=== PATIENT | female | born 1960 | race Caucasian/White ===

== ENCOUNTER → 2017-09-24 07:56 | Outpatient (CLI) | payer BC, MEDICAID, SELFPAY ==
--- NOTE | 2017-09-24 08:01 | US_ITS ---
ULTRASOUND GUIDED CORE BIOPSY REASON FOR EXAM: Female, 57 years old. Ill-defined hypoechoic nodule at the 12:00 position in the breast at 4 cm from nipple. PERTINENT HISTORY: Suspicious nodule. COMPARISON: Comparison is made with prior sonogram dated August 29, 2017. TECHNIQUE: (All elements of maximal sterile barrier technique followed, including US elements as applicable) Under direct sonographic guidance, the surgeon performed multiple core biopsies of the nodular density at the 12:00 position breast at 4 cm from the nipple. US/US Breast Biopsy 1st Lesion IMPRESSION: Ultrasound guided core biopsy of a mass in the LEFT breast at 12:00 position breast at 4 cm from the nipple without complication. Electronically Signed: Horacio Barfield MD at 12:45 EST Tel [phone], Service support ,
--- NOTE | 2017-09-24 08:45 | BRBX_PTH ---
PATIENT: MANUEL SEGOVIA LOC: U#:[id number] AGE/SX: 65/F ROOM: RE09/24/[address]: Dr. Yonatan Richter MD : 1960 BED: DIS: SPEC #: [id number] RECD: 09/24/17 09:00 STATUS: JODEE DON #: [id number] DUSTY: 09/24/17 08:[address]: Yonatan Richter DEPT: SURGICAL PATHOLOGY RECD BY: Jared Viera ENTERED: 09/24/17 13:18 SP TYPE: BREAST BX OTHR DR: Dr. Toi Gamboa MD Tissues: Left breast, NOS Procedures: Surgery Specimen Level IV HEADER OPERATION: Left breast needle biopsy ultrasound-guided PRE-OP DIAGNOSIS: Nodule 2.1 x 6 cm TISSUE SUBMITTED: Left breast 1 o?clock nodule MICROSCOPIC DIAGNOSIS Left breast at 1 o?clock, needle core biopsy: Densely collagenized stroma. Focal intraductal hyperplasia without atypia. No evidence of malignancy. AM:shanon 09/25/17 MICROSCOPIC DESCRIPTION Slides are reviewed. GROSS DESCRIPTION Received in fixative is one container labeled with the patient's name and designated left breast biopsy. The specimen consists of multiple elongated fragments of gordon-yellow fibroadipose tissue that in aggregate measure 2 x 0.5 x 0.1 cm. The entire specimen is submitted in one cassette. / SJ:shanon 09/24/17 TC:5 CPT: 97565
--- NOTE | 2017-09-24 13:34 | PCM.OPRPT ---
Problem List (1) Abnormal mammogram of left breast Status: Acute Report of Operation Date of Procedure: 09/24/17 Pre-Operative Diagnosis: r92.8 abnormal mammogram to left breast Post-Operative Diagnosis: Same Surgery/Procedure Performed:: Ultrasound-guided handheld mammotome breast biopsy left Type of Anesthesia:: Local Description of Procedure: Ultrasound of the left breast revealed the lesion in question. I prepped the breast with chlorhexidine. I injected 1% lidocaine plain. I injected local posterior to the lesion. A skin juan jose was made. Under ultrasound guidance I guided the hand-held mammotome biopsy posterior to the lesion. Numerous biopsies were obtained. Under ultrasound guidance I placed a titanium clip. Sterile dressings were applied. The patient tolerated the procedure well. - Admit VTE Documentation VTE Present on Admission: No VTE Mechan Device Prophylaxis: None VTE Pharm Prophylaxis ordered?: No Reason prophylaxis not ordered:: Treatment Not Indicated
== END ==
PROVIDERS: Family Provider Family Medicine; PCP Family Medicine; Visit Provider Surgery
DX: N60.92 Unspecified benign mammary dysplasia of left breast (principal)
CPT/HCPCS: 19083; 88305

== ENCOUNTER → 2018-04-24 15:37 | Outpatient (CLI) | payer BC, MEDICAID, SELFPAY | PROVIDERS: Family Provider Family Medicine; PCP Family Medicine; Visit Provider Family Medicine | DX: M25.562 Pain in left knee (principal); G89.29 Other chronic pain | CPT/HCPCS: 73721 ==

== ENCOUNTER → 2018-06-19 08:23 | Outpatient (CLI) | payer BC, MEDICAID, SELFPAY ==
[2018-06-19 10:53] LABS: Hemoglobin 12.9 g/dl (12.0-15.0); Mean Corp Hgb Conc 33.1 g/gl (32-36); Mean Corpuscular Hgb 31.5 pg (27.0-32.0); Mean Corpuscular Volume 95.4 fL (81-99); Mean Platelet Vol. 11.6 fl (6.2-12.0); Platelet Count 228 K/mm3 (150-450); RBC Distribution Width CV 13.1 % (11.6-14.6); RBC Distribution Width SD 45.6 fl (35.1-43.9); Red Blood Count 4.09 M/mm3 (4.2-5.4); White Blood Count 5.7 K/mm3 (4.4-11.0)
[2018-06-19 10:55] LABS: Scan Indicated on CBC? Y/N NO
[2018-06-19 10:59] LABS: Anion Gap 7 (5-15); BUN 14 mg/dL (7-18); BUN/Creat Ratio 14.2 RATIO (10-20); Chloride 101 mmol/L (98-107); Creatinine, Serum 0.98 mg/dL (0.55-1.02); EST Glomerular Filtration Rate 61 mL/min (>60); Est Glom Filt Rate - Afr Amer 74 mL/min (>60); Glucose 85 mg/dL (74-106); Potassium 3.1 mmol/L (3.5-5.1); Sodium Level 140 mmol/L (136-145)
[2018-06-19 11:08] LABS: Cholesterol 238 mg/dL (200); High Density Lipoprotein 75 mg/dL; Triglycerides 99 mg/dL; Very Low Density Lipoprotein 20 mg/dL (5-40); Vitamin D,25 Hydroxy 22.4 ng/mL (29.95-100.01)
== END ==
PROVIDERS: Family Medicine; Family Provider Family Medicine; PCP Family Medicine; Visit Provider Family Medicine
DX: I10 Essential (primary) hypertension (principal); Z79.1 Long term (current) use of non-steroidal anti-inflammatories (NSAID); R20.0 Anesthesia of skin
CPT/HCPCS: 36415; 80048; 80061; 82306; 85027

== ENCOUNTER → 2018-08-24 10:10 | Outpatient (CLI) | payer BC, SELFPAY ==
[2018-08-24 12:29] LABS: Anion Gap 9 (5-15); BUN 19 mg/dL (7-18); BUN/Creat Ratio 18.6 RATIO (10-20); Calcium,Total 8.9 mg/dL (8.5-10.1); Chloride 102 mmol/L (98-107); Creatinine, Serum 1.02 mg/dL (0.55-1.02); EST Glomerular Filtration Rate 59 mL/min (>60); Est Glom Filt Rate - Afr Amer 71 mL/min (>60); Glucose 99 mg/dL (74-106); Potassium 3.3 mmol/L (3.5-5.1); Sodium Level 142 mmol/L (136-145)
== END ==
PROVIDERS: Family Provider Family Medicine; PCP Family Medicine; Visit Provider Family Medicine
DX: I10 Essential (primary) hypertension (principal); R20.0 Anesthesia of skin; R20.2 Paresthesia of skin; E55.9 Vitamin D deficiency, unspecified; E87.6 Hypokalemia
CPT/HCPCS: 36415; 80048; 82306

== ENCOUNTER → 2019-05-18 16:45 | Outpatient (CLI) | payer BC, SELFPAY ==
--- NOTE | 2019-05-18 16:49 | BI_ITS ---
MAMMOGRAPHY - BILATERAL SCREENING REASON FOR EXAM: Female, 59 years old. Routine annual screening examination. PERTINENT HISTORY: Non-contributory. Status post left ultrasound breast biopsy. TECHNIQUE: Digital bilateral breast otilia (3D mammographic acquisition) in the CC and MLO projections. 2-D mediolateral oblique (MLO) and craniocaudad (CC) views of both breasts were obtained. CAD: Full Field Digital Mammography with Computer Added Detection was performed. COMPARISON: Comparison is made with prior study dated August 26, 2017 and December 23, 2014. FINDINGS: Breast Composition: The breasts are extremely dense, which lowers the sensitivity of mammography. There is a 3.2 cm x 3.2 cm well-defined nodule in the central slightly medial aspect of the left breast. Correlation with ultrasound is recommended. A tissue clip marker is seen in the deep central medial aspect of the left breast. No other significant abnormalities are identified. BI/SCREEN MAMM (CAD) W/OTILIA BILAT IMPRESSION: Nodular density in the left breast as described. Correlation with ultrasound is recommended. ASSESSMENT CATEGORY: BIRADS Category 0: Incomplete. Need additional imaging evaluation. A letter regarding these results will be sent to the patient by the facility within 30 days. Approximately 10% of breast cancers are not detected by mammography. A normal mammogram should not delay biopsy of a clinically suspicious abnormality. [id number] Electronically Signed: Horacio Barfield, at 9:14 EDT , Service support ,
[2019-05-22 10:20] LABS: HPV Reflexed? NOT INDICATED
== END ==
PROVIDERS: Family Provider Family Medicine; PCP Family Medicine; Referring Provider Family Medicine; Visit Provider Family Medicine
DX: Z01.419 Encounter for gynecological examination (general) (routine) without abnormal findings (principal); Z12.31 Encounter for screening mammogram for malignant neoplasm of breast
CPT/HCPCS: 77063; 77067; 88175; G0145

== ENCOUNTER → 2019-06-01 14:56 | Outpatient (CLI) | payer BC, SELFPAY ==
--- NOTE | 2019-06-01 14:59 | US_ITS ---
STUDY: ULTRASOUND BREAST - LEFT REASON FOR EXAM: Female, 59 years old. Abnormal screening mammogram. TECHNIQUE: Axial and longitudinal images of the LEFT breast were performed with a high resolution ultrasound transducer. COMPARISON: Comparison is made with prior mammogram dated May 18, 2019 and prior ultrasound of the left breast dated August 29, 2017. FINDINGS: LEFT Breast: The mammographic abnormality corresponds to a 2.1 cm x 2.9 cm x 2 cm irregular spiculated nodule with posterior acoustical shadowing at the 12:00 position of the breast at 4 cm from the nipple. A biopsy is recommended. US/Breast Limited Unilateral IMPRESSION: The mammographic abnormality corresponds to a 2.1 cm x 2.9 cm x 2 cm irregular hypoechoic nodule with posterior acoustical shadowing at the 12:00 position of the breast at 4 cm from the nipple. A biopsy is recommended. ASSESSMENT CATEGORY: BIRADS Category 4: Suspicious - Biopsy Should Be Considered. A letter regarding these results will be sent to the patient by the facility within 30 days. Electronically Signed: Horacio Barfield, at 14:16 EDT , Service support ,
== END ==
PROVIDERS: Family Provider Family Medicine; PCP Family Medicine; Referring Provider Family Medicine; Visit Provider Family Medicine
DX: N63.20 Unspecified lump in the left breast, unspecified quadrant (principal)
CPT/HCPCS: 76642

== ENCOUNTER → 2019-06-23 09:36 | Outpatient (CLI) | payer BC, SELFPAY ==
[2019-06-14 15:47] VITALS: BMI 23.9
--- NOTE | 2019-06-23 09:38 | US_ITS ---
STUDY: ULTRASOUND BREAST - LEFT REASON FOR EXAM: Female, 59 years old. Patient is scheduled for ultrasound-guided breast biopsy. TECHNIQUE: Axial and longitudinal images of the LEFT breast were performed with a high resolution ultrasound transducer. COMPARISON: Comparison is made with prior ultrasound of the left breast dated June 01, 2019. FINDINGS: LEFT Breast: The abnormality is seen at the 12:00 position of the breast at 4 cm from the nipple. The surgeon was performed the biopsy. US/Breast Limited Unilateral IMPRESSION: Scheduled biopsy was not performed. ASSESSMENT CATEGORY: BIRADS Category 0: Incomplete. Need additional imaging evaluation. A letter regarding these results will be sent to the patient by the facility within 30 days. Electronically Signed: Horacio Barfield, at 11:09 EDT , Service support ,
--- NOTE | 2019-06-23 10:31 | NURSING ---
local given by biopsy not done, area cleaned off and dressing opsite applied by myself, reviewed dc teaching and Doctors office will be calling patient later today. Jesika
--- NOTE | 2019-06-23 10:42 | HP.PCM_ITS ---
History and Physical Date of Admission: 06/23/19 [facility] [address] [place], [place] [id number] OFFICE VISIT Date of Service: 06/14/19 MR#: [id number] Acct: [id number] Name: MANUEL SEGOVIA Rep #: [id number] : 1960 Provider: Yonatan ramirez MD Age/Sex: 59/F Location: [facility] Status: Signed Intake Vital Signs 06/14/19 Body Mass Index (BMI) 23.9 06/14/19 Height 5 ft 2.5 in 06/14/19 Weight: 148 lb 06/14/19 Body Mass Index (BMI) 26.6 06/14/19 Blood Pressure 139/78 H 06/14/19 Blood Pressure Location Rt brachial 06/14/19 Respiratory Rate 18 06/14/19 Pulse Rate 67 06/14/19 Pulse Source Monitor 06/14/19 Temperature 98.4 F 06/14/19 Pulse Ox 99 06/14/19 Oxygen Delivery Method room air Intake Visit Reasons: Birads 4 Lt Breast [facility] US 06/01 Chief Complaint: left breast biopsy Packing Clerk Required: No Is patient in pain?: No Allergies azithromycin Allergy (Unknown, Verified 06/14/19 15:47) Unknown Sulfa (Sulfonamide Antibiotics) Allergy (Verified 06/14/19 15:47) Rash Medications chlorthalidone 25 mg tablet 25 mg PO QDAY 09/09/17 [History Confirmed 06/14/19] diphenhydramine 25 mg capsule 25 mg PO QHS 09/09/17 [History Confirmed 06/14/19] [facility] Medical History Abnormal mammogram of left breast (Acute) Hypertension (Chronic) Arthritis (Acute) Fatigue (Acute) Surgical History Hx of LASIK (Acute) Hx of left breast biopsy (Acute) History of in vitro fertilization (Acute) History of breast biopsy (Acute) Family History Father Heart disease Hypertension Mother Hypertension Osteoporosis Uterine cancer Social History (Updated 06/17/19 @ 11:32 by Yonatan Richter MD) Smoking Status: Never smoker second hand exposure: No alcohol intake: current alcohol intake frequency: 0-2 drinks per day Alcohol type: wine substance use type: does not use caffeine: Yes what type of physical activity do you participate in: none frequency: does not exercise seatbelt use: always HPI HPI HPI: MANUEL SEGOVIA, is a 59 F who presents to the office today for HPI HPI Surgical H&P: Yes HPI: MANUEL SEGOVIA is a 59 F who presents to the office today for Evaluation of an abnormal mammogram and ultrasound. Patient had her mammogram and ultrasounds completed [facility] on 06/01/2019. This showed a 2.1 x 2.9 x 2 cm irregular hypoechoic nodule with posterior shadowing at the 12 o'clock position and a biopsy was recommended. They gave her a BI-RADS Category 4. ROS General General: Yes weight change; no appetite, fatigue, colon cancer, breast cancer or weakness HEENT HEENT: No difficulty swallowing, eye injury, eye surgery, swollen glands or hoarseness Endo Endocrine: No thyroid disease, diabetes mellitus, thyroid cancer, Hair loss, heat intolerance or cold intolerance Skin Skin: No rash or changing moles Breast Breast: Yes abnormal mammogram and abnormal US; no left breast lump, right breast lump, nipple discharge, breast pain or breast enlargement Musc Musculoskeletal: Yes arthritis; no back problems, rheumatoid arthritis, gout or joint pain Cardio Cardiovascular: Yes high blood pressure; no murmur, pacemaker, heart disease, atrial fibrillation, heart attack, heart stent, palpitations, shortness of breat with exertion or chest pain Psych Psychiatric: No depression, anxiety or hearing voices Resp Respiratory: No shortness of breath, No sleep apnea, No cough, No COPD, No asthma, No emphysema, No wheezing Gastro Gastrointestinal: No abdominal pain, No nausea or vomiting, No diarrhea, No constipation, No blood in stool, No acid reflux, No hemorrhoids, No ulcers, No gallbladder problem, No black,tarry stools Samuel Hematologic: No blood thinners, No blood disorders, No bleeding, No anemia, No blood clots Neuro Neurologic: No system reviewed and no additional complaints, except as docu, No as per HPI, No abnormal walking, No abnormal hearing, No abnormal movements, No abnormal speech, No behavioral changes, No burning sensations, No confusion, No seizure-like activity, No unsteadiness, No dizziness, No localized weakness, No frequent falls, No headache(s), No lack of coordination, No loss of vision, No memory loss, No numbness, No other visual disturbances, No radiating pain, No restless legs, No sensory deficit, No fainting, No tingling, No tremor(s), No weakness, No other Exam HENMT Head: normal to inspection, normocephalic, atraumatic Mouth: oropharynx normal, moist mucous membranes Eyes General: appearance normal, both eyes and all related structures Sclera: sclerae normal Neck Neck: trachea midline, no lymphadenopathy noted Neck mass: No Thyroid: thyroid normal Lymphatic: no lymphadenopathy noted Chest Breast inspection: normal inspection of the breasts Breast Palpation: No nipple discharge Resp Other: Respiratory Exam: Deferred Cardio Heart Sounds: no murmurs Other: Cardiac Exam: Deferred GI Other: GI Exam: Deferred Other: Rectal Exam: Deferred Extrem Other: Extremity Exam: Deferred Assessment & Plan Problems 1. Abnormal mammogram of left breast R92.8 Plan I have discussed above with the patient. I have recommended ultrasound guided needle core breast biopsy with vacuum assistance. I have described the procedure to the patient. I have discussed with the patient that sometimes the ultrasound lesion may be artifact and is user dependent and therefore prior to undergoing the procedure, the patient will have a definitive US to ensure that the lesion is truly present and is not artifact. A marker clip will be placed to identify the location. Patient has been counseled to the risks/benefits of the procedure. I have explained the risks of the surgery, including but not limited to: infection, bleeding, injury to any blood vessels/nerves, scar tissue, missing the lesion, further surgery, etc. - the patient understands and agrees to proceed. I have answered all of the patient's questions to her satisfaction and she has no further questions. Coding Level of Care Code Off vis,est,level 3 Diagnoses Abnormal mammogram of left breast R92.8 06/17/19 1132 <Electronically signed by Yonatan barragan MD> Date _ Yonatan Villeda Signature: Date (if applicable) CC: Bret Flores MD ~ I have re-examined the patient. There are no clinical changes since date of exam.
--- NOTE | 2019-06-23 10:43 | OP.PCM_ITS ---
Problem List (1) Abnormal mammogram of left breast Status: Acute Report of Operation Date of Procedure: 06/23/19 Pre-Operative Diagnosis: Abnormal mammogram/ultrasound to the left breast Post-Operative Diagnosis: Same Surgery/Procedure Performed:: Attempted ultrasound-guided needle core biopsy of abnormal mammogram the left breast Type of Anesthesia:: Local Description of Procedure: Patient was brought into the ultrasound suite. We ultrasound the left breast at the 12 o'clock position approximately 4 cm from the nipple I thought that I saw the area that was seen on the ultrasound but it was very difficult to see I prepped the skin with chlorhexidine. I injected 1% lidocaine plain. I injected local down to the area which was just on the musculature of the chest. This was painful for the patient unfortunately it distorted the area to the point where I did not feel comfortable attempting to biopsy an area which I just did not see clearly since injecting the local. I think this area is suspicious and I do not think that I can do the biopsy and therefore I am going to send her for a second opinion from a breast surgeon at the [facility] in [place]. - Admit VTE Documentation VTE Present on Admission: No VTE Mechan Device Prophylaxis: None VTE Pharm Prophylaxis ordered?: No Reason prophylaxis not ordered:: Treatment Not Indicated
== END ==
PROVIDERS: Family Provider Family Medicine; PCP Family Medicine; Referring Provider Surgery; Visit Provider Surgery
DX: R92.8 Other abnormal and inconclusive findings on diagnostic imaging of breast (principal)
CPT/HCPCS: 76642

== ENCOUNTER → 2020-05-30 14:09 | Outpatient (CLI) | payer BC, SELFPAY ==
[2019-06-14 15:47] VITALS: BMI 23.9
--- NOTE | 2020-05-30 14:12 | BI_ITS ---
MAMMOGRAPHY - BILATERAL SCREENING REASON FOR EXAM: Female, 60 years old. Routine annual screening examination. PERTINENT HISTORY: Non-contributory. Occasional left breast swelling. Prior left breast biopsies. TECHNIQUE: Digital bilateral breast otilia (3D mammographic acquisition) in the CC and MLO projections. 2-D mediolateral oblique (MLO) and craniocaudad (CC) views of both breasts were obtained. CAD: Full Field Digital Mammography with Computer Added Detection was performed. COMPARISON: Comparison is made with prior study of 05/18/2019 and 08/26/2017. FINDINGS: Breast Composition: The breasts are extremely dense, which lowers the sensitivity of mammography. There are no dominant masses or suspicious calcifications. A tissue clip marker is seen in the central knee the left breast. A second tissue marker is seen in the upper central portion left breast. Stable benign-appearing bilateral axillary lymph nodes. No other significant abnormalities are identified. There has been no significant change since the prior study. BI/SCREEN MAMM (CAD) W/OTILIA BILAT IMPRESSION: Stable bilateral screening mammogram. Yearly follow-up mammogram recommended. (A) ASSESSMENT CATEGORY: BIRADS Category 2: Benign. A letter regarding these results will be sent to the patient by the facility within 30 days. Approximately 10% of breast cancers are not detected by mammography. A normal mammogram should not delay biopsy of a clinically suspicious abnormality. [id number] Electronically Signed: Horacio Barfield, at 15:16 EDT , Service support ,
== END ==
PROVIDERS: PCP Family Medicine; Referring Provider Family Medicine; Visit Provider Family Medicine
DX: Z12.31 Encounter for screening mammogram for malignant neoplasm of breast (principal)
CPT/HCPCS: 77063; 77067

== ENCOUNTER → 2020-06-09 15:25 | Outpatient (CLI) | payer BC, SELFPAY ==
[2019-06-14 15:47] VITALS: BMI 23.9
[2020-06-09 18:24] LABS: Anion Gap 6 (5-15); BUN 15 mg/dL (7-18); BUN/Creat Ratio 15.7 RATIO (10-20); Chloride 98 mmol/L (98-107); Cholesterol 223 mg/dL (200); Creatinine, Serum 0.96 mg/dL (0.55-1.02); EST Glomerular Filtration Rate 63 mL/min (>60); Est Glom Filt Rate - Afr Amer 76 mL/min (>60); Glucose 93 mg/dL (74-106); High Density Lipoprotein 87 mg/dL; Sodium Level 134 mmol/L (136-145); Triglycerides 72 mg/dL; Very Low Density Lipoprotein 14 mg/dL (5-40)
== END ==
PROVIDERS: PCP Family Medicine; Referring Provider Family Medicine; Visit Provider Family Medicine
DX: Z00.00 Encounter for general adult medical examination without abnormal findings (principal)
CPT/HCPCS: 36415; 80048; 80061; 82306

== ENCOUNTER → 2020-07-05 08:55 | Outpatient (CLI) | payer BC, SELFPAY ==
[2019-06-14 15:47] VITALS: BMI 23.9
[2020-07-05 10:40] LABS: Anion Gap 8 (5-15); BUN 17 mg/dL (7-18); Chloride 99 mmol/L (98-107); EST Glomerular Filtration Rate 60 mL/min (>60); Est Glom Filt Rate - Afr Amer 72 mL/min (>60); Glucose 76 mg/dL (74-106); Potassium 3.1 mmol/L (3.5-5.1); Sodium Level 137 mmol/L (136-145)
== END ==
PROVIDERS: PCP Family Medicine; Referring Provider Family Medicine; Visit Provider Family Medicine
DX: E87.6 Hypokalemia (principal)
CPT/HCPCS: 36415; 80048

== ENCOUNTER → 2020-11-08 12:05 | Outpatient (CLI) | payer BC, SELFPAY ==
[2019-06-14 15:47] VITALS: BMI 23.9
--- NOTE | 2020-11-08 12:08 | RAD_ITS ---
STUDY: X-RAY - UNILATERAL RIBS ( RIGHT ) REASON FOR EXAM: Female, 60 years old. pt fell, right rib pain under right armpit and bruising TECHNIQUE: 4 view(s) of the ribs. COMPARISON: None. FINDINGS: No acute fracture, dislocation or osseous destruction. No significant joint space narrowing. No significant productive changes. No significant soft tissue swelling. RAD/Ribs Unil 2V No CXR IMPRESSION: Right ribs intact Electronically Signed: Azael Dias DO at 8:05 EST Tel , Service support ,
== END ==
PROVIDERS: PCP Family Medicine; Referring Provider Family Medicine; Visit Provider Family Medicine
DX: S29.9XXA Unspecified injury of thorax, initial encounter (principal); W19.XXXA Unspecified fall, initial encounter
CPT/HCPCS: 71100

== ENCOUNTER → 2021-02-07 12:45 | Outpatient (CLI) | payer BC, SELFPAY ==
[2019-06-14 15:47] VITALS: BMI 23.9
--- NOTE | 2021-02-07 12:49 | RAD_ITS ---
STUDY: X-RAY - RIGHT FOOT CLINICAL: Female, 60 years old. FOOT PAIN TECHNIQUE: 3 view(s) of the foot. COMPARISON: None. FINDINGS: Normal talus, calcaneus, and tarsal bones. Normal visualized subtalar, talonavicular, calcaneocuboid, tarsal and tarsometatarsal articulations. Normal metatarsi. There is degenerative arthrosis of the metatarsophalangeal joint of the hallux . Normal tibial and fibular sesamoid bones. Normal interphalangeal joint of the great toe. Normal phalanges of the great toe. Normal second through fifth metatarsophalangeal joints. Normal interphalangeal joints and phalanges of the lesser toes. Soft tissue swelling. RAD/Foot min 3 Views IMPRESSION: Degenerative changes at the first metatarsal phalangeal joint Soft tissue swelling. Electronically Signed: Horacio Barfield MD at 13:23 EDT , Service support ,
== END ==
PROVIDERS: PCP Family Medicine; Referring Provider Chiropractor; Visit Provider Chiropractor
DX: M79.671 Pain in right foot (principal)
CPT/HCPCS: 73630

== ENCOUNTER → 2021-06-26 16:16 | Outpatient (CLI) | payer BC, SELFPAY ==
--- NOTE | 2021-06-26 16:19 | BI_ITS ---
MAMMOGRAPHY - BILATERAL SCREENING REASON FOR EXAM: Female, 61 years old. Routine annual screening examination. PERTINENT HISTORY: Non-contributory. TECHNIQUE: Digital bilateral breast otilia (3D mammographic acquisition) in the CC and MLO projections. 2-D mediolateral oblique (MLO) and craniocaudad (CC) views of both breasts were obtained. CAD: Full Field Digital Mammography with Computer Added Detection was performed. COMPARISON: Comparison is made with prior examination of 05/30/2020 and 05/18/2019. FINDINGS: Breast Composition: The breasts are extremely dense, which lowers the sensitivity of mammography. There are no dominant masses or suspicious calcifications. Once again, a tissue clip markers are seen in the upper central and medial aspects of the left breast. Stable benign-appearing bilateral axillary lymph nodes. No other significant abnormalities are identified. There has been no significant change since the prior study. BI/SCRN MAMM (CAD)W/OTIILA BILAT IMPRESSION: Stable bilateral screening mammogram. Yearly follow-up mammogram recommended. (A) ASSESSMENT CATEGORY: BIRADS Category 2: Benign. A letter regarding these results will be sent to the patient by the facility within 30 days. Approximately 10% of breast cancers are not detected by mammography. A normal mammogram should not delay biopsy of a clinically suspicious abnormality. [id number] Electronically Signed: Horacio Barfield MD at 11:15 EDT , Service support ,
== END ==
PROVIDERS: PCP Family Medicine; Referring Provider Family Medicine; Visit Provider Family Medicine
DX: Z12.31 Encounter for screening mammogram for malignant neoplasm of breast (principal)
CPT/HCPCS: 77063; 77067

== ENCOUNTER 2021-11-16 08:20 | Outpatient (CLI) | payer BC, SELFPAY ==
[2021-11-16 09:57] LABS: Absolute Lymphocyte Count 1.31 X10^3/uL (0.83-4.51); Absolute Neutrophil Count 3.3 X10^3/uL (2.0-7.7); Basophil# 0.08 X10^3/uL; Basophil% 1.5 % (0-1); Eosinophil# 0.12 X10^3/uL; Eosinophils% 2.3 % (0-5); Hematocrit 37.3 % (37-47); Lymphocyte # 1.31 X10^3/ul (0.83-4.51); Lymphocyte % 25.2 % (19-41); Mean Corp Hgb Conc 32.2 g/dL (32-36); Mean Corpuscular Hgb 30.7 pg (27.0-32.0); Mean Corpuscular Volume 95.4 fL (81-99); Mean Platelet Vol. 10.9 fl (6.2-12.0); Monocyte# 0.37 X10^3/uL; Monocyte% 7.1 % (0-10); NRBC Flagged by Analyzer 0 % (0-5); Neutrophil # 3.29 X10^3/uL (2.7-7.7); Neutrophil % 63.5 % (47-70); Platelet Count 228 K/mm3 (150-450); RBC Distribution Width CV 13.2 % (11.6-14.6); RBC Distribution Width SD 46.5 fl (35.1-43.9); Red Blood Count 3.91 M/mm3 (4.2-5.4); White Blood Count 5.2 K/mm3 (4.4-11.0)
[2021-11-16 10:25] LABS: ALB/GLOB Ratio 0.9 RATIO (0.9-2.4); AST(SGOT) 17 U/L (15-37); Alanine Aminotransfer ALT/SGPT 21 U/L (13-56); Albumin, Serum 3.7 g/dL (3.2-5.0); Alkaline Phosphatase 87 U/L (45-117); Anion Gap 6 (5-15); BUN 15 mg/dL (7-18); BUN/Creat Ratio 15.3 RATIO (10-20); Calcium,Total 8.8 mg/dL (8.5-10.1); Chloride 102 mmol/L (98-107); Cholesterol 218 mg/dL (200); Creatinine, Serum 0.98 mg/dL (0.55-1.02); EST Glomerular Filtration Rate 61 mL/min (>60); Est Glom Filt Rate - Afr Amer 74 mL/min (>60); Glucose 85 mg/dL (74-106); High Density Lipoprotein 78 mg/dL; Potassium 3.2 mmol/L (3.5-5.1); Protein, Total 7.7 g/dL (6.4-8.2); Sodium Level 137 mmol/L (136-145); Triglycerides 73 mg/dL; Very Low Density Lipoprotein 15 mg/dL (5-40)
== END 2021-11-16 23:59 | disposition home or self-care (01) ==
LOC: MFPLAB 08:25
PROVIDERS: PCP Family Medicine; Referring Provider Family Medicine; Visit Provider Registered Nurse
DX: I10 Essential (primary) hypertension (principal)
CPT/HCPCS: 36415; 80053; 80061; 85025

== ENCOUNTER → 2022-08-13 | Outpatient (CLI) | payer BC, SELFPAY ==
--- NOTE | 2022-08-13 15:35 | BI_ITS ---
MAMMOGRAPHY - BILATERAL SCREENING REASON FOR EXAM: Female, 62 years old. Routine annual screening examination. PERTINENT HISTORY: Non-contributory. History of prior left breast needle biopsy. TECHNIQUE: Digital bilateral breast otilia (3D mammographic acquisition) in the CC and MLO projections. 2-D mediolateral oblique (MLO) and craniocaudad (CC) views of both breasts were obtained. CAD: Full Field Digital Mammography with Computer Added Detection was performed. COMPARISON: Comparison is made with prior study dated 06/26/2021 and 05/30/2020. FINDINGS: Breast Composition: The breasts are extremely dense, which lowers the sensitivity of mammography. There are no dominant masses or suspicious calcifications. 2 tissue markers are seen in the central slightly medial aspect of the left breast. Stable small benign-appearing bilateral axillary lymph nodes. No other significant abnormalities are identified. There has been no significant change since the prior study. BI/SCRN MAMM (CAD)W/OTILIA BILAT IMPRESSION: Stable bilateral screening mammogram. Yearly follow-up mammogram recommended. (A) ASSESSMENT CATEGORY: BIRADS Category 2: Benign. A letter regarding these results will be sent to the patient by the facility within 30 days. Approximately 10% of breast cancers are not detected by mammography. A normal mammogram should not delay biopsy of a clinically suspicious abnormality. [id number] Electronically Signed: Horacio Barfield MD at 8:53 EST ,
== END | disposition home or self-care (01) ==
LOC: OPBI 15:34
PROVIDERS: PCP Family Medicine; Visit Provider Family Medicine
DX: Z12.31 Encounter for screening mammogram for malignant neoplasm of breast (principal)
CPT/HCPCS: 77063; 77067

== ENCOUNTER → 2022-10-02 | Outpatient (CLI) | payer BC, SELFPAY ==
[2022-10-02 12:40] LABS: ALB/GLOB Ratio 0.9 RATIO (0.9-2.4); AST(SGOT) 15 U/L (15-37); Alanine Aminotransfer ALT/SGPT 21 U/L (13-56); Albumin, Serum 3.5 g/dL (3.2-5.0); Alkaline Phosphatase 77 U/L (45-117); Anion Gap 8 (5-15); BUN 17 mg/dL (7-18); Calcium,Total 8.9 mg/dL (8.5-10.1); Chloride 102 mmol/L (98-107); Cholesterol 215 mg/dL (200); Creatinine, Serum 0.94 mg/dL (0.55-1.02); EST Glomerular Filtration Rate 64 mL/min (>60); Est Glom Filt Rate - Afr Amer 77 mL/min (>60); Globulin 3.9 g/dL (2.2-4.2); Glucose 87 mg/dL (74-106); High Density Lipoprotein 80 mg/dL; Potassium 3.3 mmol/L (3.5-5.1); Protein, Total 7.4 g/dL (6.4-8.2); Sodium Level 139 mmol/L (136-145); Triglycerides 61 mg/dL; Very Low Density Lipoprotein 12 mg/dL (5-40)
== END | disposition home or self-care (01) ==
PROVIDERS: PCP Family Medicine; Referring Provider Family Medicine; Visit Provider Nurse Practitioner Family
DX: Z13.1 Encounter for screening for diabetes mellitus (principal); Z13.220 Encounter for screening for lipoid disorders
CPT/HCPCS: 36415; 80053; 80061

== ENCOUNTER → 2023-03-17 | Outpatient (CLI) | payer BC, SELFPAY ==
[2023-03-19 21:07] LABS: HPV APTIMA, High Risk Negative (Negative)
[2023-03-19 21:54] LABS: HPV Reflexed? YES, CHARGE PATIENT
== END | disposition home or self-care (01) ==
LOC: LABSPEC 12:49
PROVIDERS: PCP Family Medicine; Referring Provider Nurse Practitioner Family; Visit Provider Nurse Practitioner Family
DX: Z12.4 Encounter for screening for malignant neoplasm of cervix (principal)
CPT/HCPCS: 87624; 88175; G0145

== ENCOUNTER → 2023-04-07 | Outpatient (CLI) | payer BC, SELFPAY ==
[2023-04-07 19:37] LABS: Anion Gap 5 (5-15); BUN 14 mg/dL (7-18); BUN/Creat Ratio 14.9 RATIO (10-20); Calcium,Total 9.2 mg/dL (8.5-10.1); Chloride 99 mmol/L (98-107); Creatinine, Serum 0.94 mg/dL (0.55-1.02); EST Glomerular Filtration Rate 64 mL/min (>60); Est Glom Filt Rate - Afr Amer 77 mL/min (>60); Glucose 94 mg/dL (74-106); Potassium 2.7 mmol/L (3.5-5.1); Sodium Level 135 mmol/L (136-145)
== END | disposition home or self-care (01) ==
LOC: MFPLAB 16:30
PROVIDERS: Nurse Practitioner Family; PCP Family Medicine; Visit Provider Family Medicine
DX: I10 Essential (primary) hypertension (principal)
CPT/HCPCS: 36415; 80048

== ENCOUNTER → 2023-04-11 | Outpatient (CLI) | payer BC, SELFPAY ==
[2023-04-11 18:07] LABS: Potassium 3.8 mmol/L (3.5-5.1)
== END | disposition home or self-care (01) ==
LOC: MFPLAB 16:42
PROVIDERS: PCP Family Medicine; Visit Provider Nurse Practitioner Family
DX: E87.6 Hypokalemia (principal)
CPT/HCPCS: 36415; 84132

== ENCOUNTER → 2023-08-19 | Outpatient (CLI) | payer BC, SELFPAY ==
--- NOTE | 2023-08-19 16:11 | BI_ITS ---
MAMMOGRAPHY - BILATERAL SCREENING REASON FOR EXAM: Female, 63 years old. Routine annual screening examination. PERTINENT HISTORY: Non-contributory. History of prior left ultrasound-guided breast biopsy. TECHNIQUE: Digital bilateral breast otilia (3D mammographic acquisition) in the CC and MLO projections. 2-D mediolateral oblique (MLO) and craniocaudad (CC) views of both breasts were obtained. CAD: Full Field Digital Mammography with Computer Added Detection was performed. COMPARISON: Comparison is made with prior study dated August 13, 2022 and June 26, 2021. FINDINGS: Breast Composition: The breasts are extremely dense, which lowers the sensitivity of mammography. There are no dominant masses or suspicious calcifications. Once again, 2 tissue clip marker seen in the upper slightly medial aspect of the left breast. Stable calcifications in the right axillary region. No other significant abnormalities are identified. There has been no significant change since the prior study. BI/SCRN MAMM (CAD)W/OTILIA BILAT IMPRESSION: Stable bilateral screening mammogram. Yearly follow-up mammogram recommended. (A) ASSESSMENT CATEGORY: BIRADS Category 2: Benign. A letter regarding these results will be sent to the patient by the facility within 30 days. Approximately 10% of breast cancers are not detected by mammography. A normal mammogram should not delay biopsy of a clinically suspicious abnormality. [id number] Electronically Signed: Horacio Barfield MD at 9:05 EST ,
== END | disposition home or self-care (01) ==
LOC: OPBI 16:10
PROVIDERS: PCP Family Medicine; Referring Provider Nurse Practitioner Family; Visit Provider Nurse Practitioner Family
DX: Z12.31 Encounter for screening mammogram for malignant neoplasm of breast (principal)
CPT/HCPCS: 77063; 77067

== ENCOUNTER → 2023-10-22 | Outpatient (CLI) | payer BC, SELFPAY ==
[2023-10-22 18:07] LABS: AST(SGOT) 18 U/L (15-37); Alanine Aminotransfer ALT/SGPT 20 U/L (13-56); Albumin, Serum 3.9 g/dL (3.2-5.0); Alkaline Phosphatase 77 U/L (45-117); Amylase 50 U/L (25-115); Anion Gap 5 (5-15); BUN 15 mg/dL (7-18); BUN/Creat Ratio 17.6 RATIO (10-20); Calcium,Total 9.2 mg/dL (8.5-10.1); Chloride 100 mmol/L (98-107); Creatinine, Serum 0.85 mg/dL (0.55-1.02); EST Glomerular Filtration Rate 71 mL/min (>60); Est Glom Filt Rate - Afr Amer 86 mL/min (>60); Globulin 3.9 g/dL (2.2-4.2); Glucose 90 mg/dL (74-106); Lipase 21 U/L (13-75); Potassium 2.8 mmol/L (3.5-5.1); Protein, Total 7.8 g/dL (6.4-8.2); Sodium Level 137 mmol/L (136-145)
--- OUTSIDE RECORDS SUMMARY | 2023-10-22 18:45 | XMS RPT_ITS | CCD ---
Author Name Unknown Address [address] [place] [address] Organization [facility] Care Team Providers Care [employer] Teacher Name Role Phone EVE HOWELL Unavailable Unavailable NICHOLAS MAGAÑA Unavailable Unavailable Allergies Allergy Classification Reported Allergen(s) Allergy Type Date of Onset Reaction(s) Facility (1 source) azithromycin; Translations: [AZITHROMYCIN] Drug Allergy 5 [facility] Repository (1 source) Sulfonamides (Antibiotic); Translations: [SULFA (SULFONAMIDE ANTIBIOTICS)] Propensity to adverse reactions to drug (disorder) 4 [facility] Repository Problems Problem Classification Problem Date Documented Da te Episodic/Chronic Crushing injury or internal injury (1 source) Traumatic pneumothorax, subsequent encounter; Translations: [Traumatic pneumothorax, subsequent encounter] Onset: 04-14-2017 Episodic Other fractures (2 sources) Multiple fractures of ribs, bilateral, subsequent encounter for fracture with routine healing; Translations: [Unspecified fracture of sternum, subsequent encounter for fracture with routine healing] Onset: 04-14-2017 Episodic Results Test Name Value Interpretation Reference Range Facil ity Encounters Encounter Date Encounter Type Care Provider Facility Start: 04-14-2017 End: 04-14-2017 Ambulatory EVE HOWELL [facility] Summary Purpose Family History No Family History Records FoundNo Family History Records FoundNo Family History Records FoundNo Family History Records FoundNo Family History Records Found Advance Directives No Advanced Directives Records FoundNo Advanced Directives Records FoundNo Advanced Directives Records FoundNo Advanced Directives Records FoundNo Advanced Directives Records Found Additional Source Comments INFORMATION SOURCE (unrecogn ized section and content) DATE CREATED AUTHOR AUTHOR'S ORGANIZ ATION 07/08/2019 [facility] DATE CREATED AUTHOR AUTHOR'S ORGANIZ ATION 07/21/2019 [facility] DATE CREATED AUTHOR AUTHOR'S CINTIA ATION 08/24/2019 [facility] FOR RECORDS PERTAINING TO PATIENTS WHO ARE OR HAVE BEEN ENROLLED IN A CHEMICAL DEPENDENCY/SUBSTANCEABUSE PROGRAM, SOME INFORMATION MAY BE OMITTED. This clinical summary was aggregated from multiple sources. Caution should be exercised in using it in the provision of clinical care. This summary normalizes information from multiple sources, and as a consequence, information in this document may materially change the coding, format and clinical context of patient data. In addition, data may be omitted in some cases. CLINICAL DECISIONS SHOULD BE BASED ON THE PRIMARY CLINICAL RECORDS. [facility] [employer]. provides no warranty or guarantee of the accuracy or completeness of information in this document.
== END | disposition home or self-care (01) ==
LOC: MFPLAB 14:31
PROVIDERS: Nurse Practitioner Family; PCP Family Medicine; Visit Provider Family Medicine
DX: R10.9 Unspecified abdominal pain (principal); E87.6 Hypokalemia
CPT/HCPCS: 36415; 80053; 82150; 83690

== ENCOUNTER → 2023-11-13 | Outpatient (CLI) | payer BC, SELFPAY ==
[2023-11-13 13:17] LABS: Anion Gap 8 (5-15); BUN 15 mg/dL (7-18); BUN/Creat Ratio 13.8 RATIO (10-20); Calcium,Total 9.1 mg/dL (8.5-10.1); Chloride 101 mmol/L (98-107); Creatinine, Serum 1.09 mg/dL (0.55-1.02); EST Glomerular Filtration Rate 54 mL/min (>60); Est Glom Filt Rate - Afr Amer 65 mL/min (>60); Glucose 89 mg/dL (74-106); Potassium 3.1 mmol/L (3.5-5.1); Sodium Level 139 mmol/L (136-145)
--- OUTSIDE RECORDS SUMMARY | 2023-11-13 19:47 | XMS RPT_ITS | CCD ---
Author Name Unknown Address [address] [place] [address] Organization [facility] Care Team Providers Care [employer] Back Forger Name Role Phone EVE HOWELL Unavailable Unavailable NICHOLAS MAGAÑA Unavailable Unavailable Allergies Allergy Classification Reported Allergen(s) Allergy Type Date of Onset Reaction(s) Facility (1 source) azithromycin; Translations: [AZITHROMYCIN] Drug Allergy 5 [facility] Repository (1 source) Sulfonamides (Antibiotic); Translations: [SULFA (SULFONAMIDE ANTIBIOTICS)] Propensity to adverse reactions to drug (disorder) 4 [facility] Repository Problems Problem Classification Problem Date [...] Start: 04-14-2017 End: 04-14-2017 Ambulatory EVE HOWELL [facility] Summary Purpose Family History No Family [...] DATE CREATED AUTHOR AUTHOR'S ORGANIZ ATION 07/08/2019 [facility] DATE CREATED AUTHOR AUTHOR'S ORGANIZ ATION 07/21/2019 [facility] DATE CREATED AUTHOR AUTHOR'S CINTIA ATION 08/24/2019 [facility] FOR RECORDS PERTAINING TO PATIENTS WHO [...] BE BASED ON THE PRIMARY CLINICAL RECORDS. [facility] [employer]. provides no warranty or guarantee of the accuracy or completeness of information in this document.
== END | disposition home or self-care (01) ==
LOC: MFPLAB 11:10
PROVIDERS: Nurse Practitioner Family; PCP Family Medicine; Visit Provider Family Medicine
DX: E87.6 Hypokalemia (principal)
CPT/HCPCS: 36415; 80048

== ENCOUNTER → 2023-12-09 | Outpatient (CLI) | payer BC, SELFPAY ==
--- NOTE | 2023-12-09 16:05 | BD_ITS ---
STUDY: DUAL ENERGY X-RAY ABSORPTIOMETRY / DXA REASON FOR EXAM: Female, 63 years old. 627.8Menopausal postmenopausal BONE DENSITY REASON FOR EXAM TECHNIQUE: Bone Mineral Density (BMD) measurements of lumbar spine and bilateral hips were obtained. COMPARISON: Comparison is made with prior study dated August 10, 2015. FINDINGS: Lumbar Spine (L1-L4): g/cm2 (0.911) / T-score (-1.3) / Z-score (0.5) Findings are suggestive of osteopenia with a low fracture risk. Left Femur Total: g/cm2 (0.823) / T-score (-1.0) / Z-score (0.2) Left Femoral Neck: g/cm2 (0.699) / T-score (-1.3) / Z-score (0.1) Right Femur Total: g/cm2 (0.667) / T-score (-2.3) / Z-score (-1.0) Right Femoral Neck: g/cm2 (0.572) / T-score (-2.5) / Z-score (-1.0) The T-Scores on the most recent prior examination were: Lumbar Spine (L1-L4): There has been worsening of bone density since the previous examination. Left Femur Total: which represents an improvement of 6%. Right Femur Total: which represents a worsening of 0.8%. BD/Dexa Bone Density Study IMPRESSION: The patient is considered osteopenic as outlined below according to [employer] [place] Organization (WHO) criteria with a high fracture risk. There has been worsening of bone density since the previous examination. Reference Information: The T-score is the number of standard deviations above or below the standard which is normal for young adults at their peak bone mineral density. The World Health Organization (WHO) interprets the T-scores as follows: Above -1 Normal bone density Between -1 and -2.5 Osteopenia Equal to / or below -2.5 Osteoporosis As a practical clinical guideline, osteopenia may be graded as follows: Mild -1 through -1.5 Moderate -1.6 through -2.0 Severe -2.1 through -2.4 The Z-score is the number of standard deviations above or below age-matched controls. A Z-score of less than -1.5 would be considered abnormal. References: 1. NIH Osteoporosis and Related Bone Diseases www osteo.org 2. International Society for Clinical Densitometry www iscd.org 3. National Osteoporosis Foundation www nof.org Electronically Signed: Horacio Barfield MD at 11:15 EDT ,
== END | disposition home or self-care (01) ==
LOC: OPBD 16:01
PROVIDERS: PCP Family Medicine; Referring Provider Family Medicine; Visit Provider Family Medicine
DX: N95.9 Unspecified menopausal and perimenopausal disorder (principal)
CPT/HCPCS: 77080

== ENCOUNTER → 2023-12-31 | Outpatient (CLI) | payer BC, SELFPAY ==
[2023-12-31 18:00] LABS: Anion Gap 8 (5-15); BUN 16 mg/dL (7-18); BUN/Creat Ratio 16.9 RATIO (10-20); Calcium,Total 9.1 mg/dL (8.5-10.1); Chloride 100 mmol/L (98-107); Creatinine, Serum 0.95 mg/dL (0.55-1.02); EST Glomerular Filtration Rate 63 mL/min (>60); Est Glom Filt Rate - Afr Amer 76 mL/min (>60); Glucose 102 mg/dL (74-106); Potassium 2.8 mmol/L (3.5-5.1); Sodium Level 138 mmol/L (136-145)
== END | disposition home or self-care (01) ==
LOC: MFPLAB 14:07
PROVIDERS: PCP Family Medicine; Visit Provider Family Medicine
DX: E87.6 Hypokalemia (principal)
CPT/HCPCS: 36415; 80048

== ENCOUNTER → 2024-01-02 | Outpatient (CLI) | payer BC, SELFPAY ==
--- NOTE | 2024-01-02 17:00 | RAD_ITS ---
STUDY: X-RAY - LEFT HAND, ATTENTION FOURTH FINGER REASON FOR EXAM: Female, 63 years old. R/O FRACTURE TECHNIQUE: 3 view(s) of the finger were obtained. COMPARISON: None. FINDINGS: There is a mildly displaced intra-articular fracture involving the dorsal margin of the base of the middle phalanx. Normal metacarpal head. Normal metacarpophalangeal joint. Normal proximal phalanx. Normal distal phalanx. Normal proximal interphalangeal joint. Normal distal interphalangeal joint. RAD/Finger(s) Min 2 Views IMPRESSION: Mildly displaced intra-articular fracture involving the dorsal margin of the base of the fourth middle phalanx. Electronically Signed: Isaías Yeager MD at 17:18 EDT ,
== END | disposition home or self-care (01) ==
LOC: MTRAD 16:56
PROVIDERS: PCP Family Medicine; Referring Provider Chiropractor; Visit Provider Chiropractor
DX: S62.605A Fracture of unspecified phalanx of left ring finger, initial encounter for closed fracture (principal)
CPT/HCPCS: 73140

== ENCOUNTER → 2024-01-14 | Outpatient (CLI) | payer BC, SELFPAY ==
[2024-01-14 10:35] LABS: Anion Gap 4 (5-15); BUN 13 mg/dL (7-18); BUN/Creat Ratio 11.9 RATIO (10-20); Calcium,Total 9.3 mg/dL (8.5-10.1); Chloride 104 mmol/L (98-107); Creatinine, Serum 1.09 mg/dL (0.55-1.02); EST Glomerular Filtration Rate 54 mL/min (>60); Est Glom Filt Rate - Afr Amer 65 mL/min (>60); Glucose 70 mg/dL (74-106); Potassium 3.1 mmol/L (3.5-5.1); Sodium Level 138 mmol/L (136-145)
== END | disposition home or self-care (01) ==
LOC: MFPLAB 08:57
PROVIDERS: PCP Family Medicine; Visit Provider Family Medicine
DX: I10 Essential (primary) hypertension (principal)
CPT/HCPCS: 36415; 80048

== ENCOUNTER → 2024-02-04 | Outpatient (CLI) | payer BC, SELFPAY | END | disposition home or self-care (01) | LOC: MFPLAB 15:26 | PROVIDERS: PCP Family Medicine; Visit Provider Family Medicine | DX: Z00.00 Encounter for general adult medical examination without abnormal findings (principal) ==

== ENCOUNTER → 2024-02-20 | Outpatient (CLI) | payer BC, SELFPAY ==
[2024-02-20 10:45] LABS: Anion Gap 5 (5-15); BUN 13 mg/dL (7-18); BUN/Creat Ratio 13.9 RATIO (10-20); Calcium,Total 9.3 mg/dL (8.5-10.1); Chloride 99 mmol/L (98-107); Creatinine, Serum 0.94 mg/dL (0.55-1.02); EST Glomerular Filtration Rate 64 mL/min (>60); Est Glom Filt Rate - Afr Amer 77 mL/min (>60); Glucose 84 mg/dL (74-106); Potassium 2.9 mmol/L (3.5-5.1); Sodium Level 136 mmol/L (136-145)
== END | disposition home or self-care (01) ==
LOC: MFPLAB 09:07
PROVIDERS: PCP Family Medicine; Visit Provider Family Medicine
DX: E87.6 Hypokalemia (principal)
CPT/HCPCS: 36415; 80048

== ENCOUNTER → 2024-03-17 | Outpatient (CLI) | payer BC, SELFPAY ==
[2024-03-17 12:40] LABS: Anion Gap 7 (5-15); BUN 13 mg/dL (7-18); BUN/Creat Ratio 13.7 RATIO (10-20); Calcium,Total 9.2 mg/dL (8.5-10.1); Chloride 104 mmol/L (98-107); Creatinine, Serum 0.95 mg/dL (0.55-1.02); EST Glomerular Filtration Rate 63 mL/min (>60); Est Glom Filt Rate - Afr Amer 76 mL/min (>60); Glucose 87 mg/dL (74-106); Potassium 3.6 mmol/L (3.5-5.1); Sodium Level 139 mmol/L (136-145)
== END | disposition home or self-care (01) ==
LOC: MFPLAB 10:14
PROVIDERS: PCP Family Medicine; Visit Provider Family Medicine
DX: E87.6 Hypokalemia (principal)
CPT/HCPCS: 36415; 80048

== ENCOUNTER 2024-07-07 09:30 | Outpatient (RCR) | payer BC, SELFPAY ==
--- NOTE | 2024-02-10 06:41 | HP.OTEVAL_ITS ---
Patient's Visit Information Visit Information Visit Information: MANULE SEGOVIA is a 63 year old F, referred to Occupational Therapy by Shalini Greco PA-C, with a diagnosis of left RF middle phalanx fx. Date of Evaluation: 02/09/24 Occupational Therapist: Carri Cagel, CHRISTOS/Abhi, CHT Subjective Subjective: This 63 year old female was seen for OT eval with dx of left RF middle phalanx fracture. Pt underwent a ORIF on 01/22/24. Pt states she had her cast removed on February 03. and placed in clam shell orthosis. pt states orthosis is wearing all the time except when she is doing her ROM ex. 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 pt states her left RF limited ROM is limiting her typing skills at this time. Pain left RF: Current Pain Intensity: 2 Pain Intensity Range: 3 ROM MP: right 0/80 left 0/70 PIP: right 0/100 left 0/10* DIP: right 0/60 left 0/15 ROM Comments: pt demo with limited ROM of left RF therapist noted with pts AROM she is fulling focused on FDS and therapist ed. on engaging FDP Strength Strength Comments: will test later date Sensation Sensation Comments: denies Goals Goal:100% adherence to protocol: Yes Comment: Middle phalanx fx rigid fixation guiedlines Goal:Daily scar massage when approriate: Yes Goal:ROM equal to unaffected hand: Yes Goal:Talking [employer] Library Clerk/Pinch strength at least 75% of unaffected hand: Yes Goal:No pain with affected hand use: Yes Goal:Full use of affected hand in daily activities including work: Yes Goal:Decrease scar hypersensitivity: Yes Other Goal: pt will demo understanding of orthosis use and skin care precautions by end of 1st session. Rehabilitation General Assessment: pt arrives s/p ORIF of middle phalanx fx. 2 weeks and 4 days. pt limited with ROM and has newly healing structures limit use of left UE with ADLs and IADls. pt would benefit from skilled OT services 1-2x week for 6 weeks to increase ROM and return to PLOF with ADLs and IADLs. Today therapist reviewed scar massage, AROM and orthosis use. pt demo understanding. Rehabilitation Potential: Good Anticipated Interventions Anticipated Interventions: A/AAROM/PROM, Strengthening, Edema Control, Scar Care, Triggerpoint Release, Desensitization, Sensory Retraining, Modalities, Orthoses, Joint Protection/Energy Conservation, Education re assistive Equipment, Education re Diagnosis and Home Program Visit Plan Frequency: 1-2x /Week Duration: 6 Weeks General Plan: day 3-5 edema control, AROM ex. performed 4-6x a day day 10-14 suture removal , once wound is completely healed scar massage cont. with AROM and PROM Week 3-4 watch for extensor lag- make sure pt is working both flex and ext ROM Week 4-6 cont. with AROM may initiate static progressive orthosis if needed- TEXT: Thank you for the opportunity to evaluate your patient. For Medicare and Medicare HMO plans, please review the plan of care and approve it. It will need to be FAXED BACK to us at [phone] for Medicare purposes. Please let me know if there are questions or concerns regarding this plan of care. Physician Signature: Date:
--- NOTE | 2024-03-01 13:03 | OTREVAL_ITS ---
Re-Evaluation Intro: Shalini Greco PA-C, It has been my pleasure to treat MANUEL SEGOVIA over the last 3 visits for left RF middle phalanx fx. Please see the progress note below for an update on the occupational therapy plan of care! Subjective Subjective: pt arrives 5 weeks and 4 days s/p from ORIF of left MF - pt states she stopped wearing her orthosis due to her limited gains in her ROM . Objective Objective/Function: left PIP RF 0/10* with blocking 40* of PIP flexion Plan Plan Frequency: 1-2x /Week Duration: 6 Weeks Plan: would like to place pt in relative motion orthosis- and if cleared initiate PROM /place and hold Goals Goals Patient Goals: Regain Mobility, Improve Fine Motor Skills, Use Hand/Wrist/Arm Normally Again and Be More Independent in ADLS Goal:100% adherence to protocol: Yes Goal:Daily scar massage when approriate: Yes Goal:ROM equal to unaffected hand: Yes Goal:Ar[employer] Former/Pinch strength at least 75% of unaffected hand: Yes Goal:No pain with affected hand use: Yes Goal:Full use of affected hand in daily activities including work: Yes Goal:Decrease scar hypersensitivity: Yes Other Goal: pt will demo understanding of orthosis use and skin care precautions by end of 1st session. Anticipated Interventions Anticipated Interventions Anticipated Interventions: A/AAROM/PROM, Strengthening, Edema Control, Scar Care, Triggerpoint Release, Desensitization, Sensory Retraining, Modalities, Orthoses, Joint Protection/Energy Conservation, Education re assistive Equipment, Education re Diagnosis and Home Program Re-Evaluation Ending Re-evaluation ending: Please do not hesitate to contact me at [phone] by phone or if you have questions or concerns regarding this new plan of care! Sincerely, Carri Cagle, ИВАНR/L, CHT
--- NOTE | 2024-05-17 13:01 | HP.OTREVAL ---
Re-Evaluation Intro: Shalini Greco PA-C, It has been my pleasure to treat MANUEL SEGOVIA over the last 11 visits for left RF middle phalanx fx. Please see the progress note below for an update on the occupational therapy plan of care! Subjective Subjective: pt arrives to session prior to her going to her surgeon tomorrow- Objective Objective/Function: Left RF PIP -10/60 DIP -15/ 35 with blocking currently at 70* PIP flexion PROM PIP flexion can get 75* left typing checker strength 25# ( pain 3/10) pt demo continued limited with active PIP flexion. scar adhesions. pt frustrated on how hard she is needing to focus on moving finger for daily tasks. Pt is performing PROM- Blocking pt has blocking orthosis to perform ex. pt and pts spouse are performing scar massage and assisting her with PROM pt is encouraged to use her hand with all daily tasks. Plan Plan Frequency: 1-2x /Week Duration: 6 Weeks Plan: due to cost of co-pay pt is attending therapy 1x a week. pt and pts spose are performing scar mtg, PROM, blocking and is to use silicone gel sleeve at night to decrease scar adhesions- and will initiate clau tape when home vs while at work typing. pt and pts spouse are performing aggressive PROM and blocking ex. Goals Goals Patient Goals: Regain Mobility, Improve Fine Motor Skills, Use Hand/Wrist/Arm Normally Again and Be More Independent in ADLS Goal:100% adherence to protocol: Yes Goal:Daily scar massage when approriate: Yes Goal:ROM equal to unaffected hand: Yes Goal:Engineer Assistant/Pinch strength at least 75% of unaffected hand: Yes Goal:No pain with affected hand use: Yes Goal:Full use of affected hand in daily activities including work: Yes Goal:Decrease scar hypersensitivity: Yes Other Goal: pt will demo understanding of orthosis use and skin care precautions by end of 1st session. Anticipated Interventions Anticipated Interventions Anticipated Interventions: A/AAROM/PROM, Strengthening, Edema Control, Scar Care, Triggerpoint Release, Desensitization, Sensory Retraining, Modalities, Orthoses, Joint Protection/Energy Conservation, Education re assistive Equipment, Education re Diagnosis and Home Program Re-Evaluation Ending Re-evaluation ending: Please do not hesitate to contact me at [phone] by phone or if you have questions or concerns regarding this new plan of care! Sincerely, Carri Cagle, OTR/L, CHT
== END 2024-07-07 19:00 | disposition home or self-care (01) ==
LOC: OT 09:30
PROVIDERS: PCP Family Medicine; Referring Provider Physician Assistant; Visit Provider Physician Assistant
DX: S62.625D Displaced fracture of middle phalanx of left ring finger, subsequent encounter for fracture with routine healing (principal)
CPT/HCPCS: 97110; 97140; 97166; 97530

== ENCOUNTER → 2024-09-28 | Outpatient (CLI) | payer BC, SELFPAY ==
--- NOTE | 2024-09-28 16:01 | BI_ITS ---
PROCEDURE: SCRN MAMM (CAD)W/OTILIA BILAT REASON FOR EXAM: F, Age 64 y/o , Routine mammogram. TECHNIQUE: Bilateral screening digital breast tomosynthesis with 2D and 3D images. Computer aided detection. COMPARISON: None. This is a baseline mammogram. Comparison is made with prior study dated August 19, 2023 and August 12, 2022. FINDINGS: The breasts are extremely dense which lowers the sensitivity of mammography. No suspicious masses, areas of developing architectural distortion, or suspicious calcifications. A tissue clip marker is seen in the inferior medial aspect of the left breast. BI/SCRN MAMM (CAD)W/OTILIA BILAT IMPRESSION: BI-RADS 2: BENIGN. RECOMMEND ANNUAL MAMMOGRAPHIC SCREENING. Follow-up code: Routine Follow-up The patient will be notified of the results by letter. Reading Location: [place] [address]
== END | disposition home or self-care (01) ==
PROVIDERS: PCP Family Medicine; Referring Provider Family Medicine; Visit Provider Family Medicine
DX: Z12.31 Encounter for screening mammogram for malignant neoplasm of breast (principal)
CPT/HCPCS: 77063; 77067

== ENCOUNTER → 2024-10-08 | Outpatient (CLI) | payer BC, SELFPAY ==
--- NOTE | 2024-10-08 11:04 | US_ITS ---
PROCEDURE: BREAST LIMITED UNILATERAL REASON FOR EXAM: Lateral right breast pain following a recent mammogram. COMPARISON: Comparison is made with prior mammogram dated September 28, 2024. TECHNIQUE: Targeted ultrasound of the lateral aspect of the right breast.. FINDINGS: RIGHT: Ultrasound targeted to the lateral half at the right breast. The breast tissue appears sonographically normal. No cyst, solid mass, or suspicious shadowing. No mass lesion is seen. Incidental note is made of a 1.4 cm x 1.3 cm x 0.6 cm benign-appearing lymph node. Dilated ducts. US/Breast Limited Unilateral IMPRESSION: Dilated retroareolar ducts. Small benign-appearing right axillary lymph node. BI-RADS 2: BENIGN. RECOMMEND ANNUAL MAMMOGRAPHIC SCREENING. Reading Location: [place] [id number]
== END | disposition home or self-care (01) ==
PROVIDERS: PCP Family Medicine; Referring Provider Family Medicine; Visit Provider Family Medicine
DX: N64.4 Mastodynia (principal)
CPT/HCPCS: 76642

== ENCOUNTER → 2024-11-10 | Outpatient (CLI) | payer BC, SELFPAY ==
[2024-11-10 17:55] LABS: Potassium 3.9 mmol/L (3.3-5.1)
== END | disposition home or self-care (01) ==
LOC: MFPLAB 11:09
PROVIDERS: PCP Family Medicine
DX: Z00.00 Encounter for general adult medical examination without abnormal findings (principal)
CPT/HCPCS: 36415; 84132

== ENCOUNTER 2025-02-23 17:56 | Emergency (ER) | payer BC, SELFPAY ==
[2025-02-23 17:56] VITALS: BP 125/81; PULSE 68; RESP 15; TEMP 36.6; O2SAT 99
--- NOTE | 2025-02-23 18:00 | RAD_ITS ---
PROCEDURE: ANKLE MIN 3 VIEWS 02/23/2025 REASON FOR EXAM: PAIN TECHNIQUE: ANKLE MIN 3 VIEWS COMPARISON: None RAD/Ankle min 3 Views IMPRESSION: Acute minimally displaced fracture of the distal tip of the lateral malleolus. There is associated moderate soft tissue edema. No radiographic foreign body. No dislocations. Mild ankle effusion. Scattere d mild degenerative changes. Reading Location: [place]
--- NOTE | 2025-02-23 21:15 | EX.ED.DYSGE1 ---
HPI History of Present Illness Chief Complaint: Lower Extremity Injury Narrative Narrative: Chief complaint and HPI: Right ankle pain. 64-year-old female with past medical history of HTN presents for evaluation of right ankle pain. Patient states that prior to arrival she accidentally twisted her right ankle on the patio. States that the ground was uneven. Patient states that she was unable to ambulate secondary to pain. She denies any numbness/tingling. Denies injury elsewhere. Review of systems: See HPI Medications: As listed on the chart Allergies: As listed on the chart PFSH: Per chart Vital signs: As listed on the chart. Reviewed. Physical exam: Gen: A&O x3, NAD Head: Normocephalic, atraumatic Eyes: No sclera icterus, conjunctiva clear ENT: Moist mucous membranes Neck: Full range of motion CV: Regular rate Resp: Nonlabored respiration Musc: Full ROM, patient has swelling to the right ankle with tenderness to palpation of the lateral malleolus, DP/PT pulse +2 bilaterally, good capillary refill, compartments soft, no tenderness to palpation of the calf or foot, Achilles tendon intact Skin: Warm, dry Neuro: Alert, oriented, grossly intact, sensation intact Psych: Cooperative, appropriate mood and affect [facility] Medical History (Updated 02/23/25 @ 21:[address] Tommie Montemayor DO) Abnormal mammogram of left breast Hypertension Arthritis Fatigue Home Medications ?Medication ?Instructions ?Recorded ?Last Taken ?Type chlorthalidone 25 mg tablet 25 mg PO QDAY 09/09/17 Unknown History diphenhydramine HCl 25 mg capsule 25 mg PO QHS 09/09/17 Unknown History (Benadryl) ondansetron 4 mg disintegrating 4 mg PO Q8H PRN PRN Nausea #10 tabs 02/23/25 Unknown Rx tablet oxycodone-acetaminophen 5 mg-325 1 tab PO Q6H PRN pain 3 days #12 02/23/25 Unknown Rx mg tablet (Percocet) tabs Allergy/AdvReac Type Severity Reaction Status Date / Time azithromycin Allergy Unknown Unknown Verified 02/23/25 17:58 Sulfa (Sulfonamide Allergy Rash Verified 02/23/25 17:58 Antibiotics) Family History Father Heart disease Hypertension Mother Hypertension Osteoporosis Uterine cancer Surgical History History of breast biopsy Hx of LASIK Hx of left breast biopsy History of in vitro fertilization Social History (Updated 06/17/19 @ 11:[address] Yonatan Richter MD) Smoking Status: Never smoker second hand exposure: No alcohol intake: current alcohol intake frequency: 0-2 drinks per day Alcohol type: wine substance use type: does not use caffeine: Yes what type of physical activity do you participate in: none frequency: does not exercise seatbelt use: always EXAM Physical Exam Const Vital Signs: 02/23/25 17:56 Temperature 97.9 F Temperature Source Oral Pulse Rate 68 Respiratory Rate 15 Blood Pressure 125/81 H Blood Pressure Mean 95 Pulse Ox 99 Oxygen Delivery Method Room Air MDM MDM MDM Narrative Medical decision making narrative: 64-year-old female with past medical history of HTN presents for evaluation of right ankle pain. Patient states that prior to arrival she accidentally twisted her right ankle on the patio. Unable to ambulate secondary to pain. Patient has swelling and tenderness to palpation of the lateral malleolus. See physical exam findings. Differential diagnosis includes but is not limited to left ankle sprain, left ankle contusion, left ankle fracture. Protocol orders were placed in triage secondary to wait times. She had an x-ray of the right ankle performed. X-ray of the right ankle was personally reviewed interpreted by nm, ED physician. Patient has a fracture to the distal tip of the lateral malleolus. Patient swelling visualized. Radiology in agreement. Patient will be placed in walking boot with follow-up with orthopedics. Patient was offered pain medicine but declined as she has not had anything to eat this evening. Will prescribe her with Percocet and Zofran as needed for severe pain. Recommended ibuprofen. She confirmed understanding of the plan. Impression: 1. Closed right distal fibula fracture 2. Mechanical fall Radiography Diagnostic Testing: Clinical Impression(s) from Imaging Studies Ankle X-Ray 02/23/25 18:00 IMPRESSION: Acute minimally displaced fracture of the distal tip of the lateral malleolus. There is associated moderate soft tissue edema. No radiographic foreign body. No dislocations. Mild ankle effusion. Scattered mild degenerative changes. Reading Location: [facility] Discharge Plan Triage Chief Complaint: Lower Extremity Injury ED Provider: Tommie Montemayor Dx/Rx/DC Orders Clinical Impression: Closed right fibular fracture Instructions: ED Ankle Fracture, Distal Fibula Prescriptions: New ondansetron 4 mg tablet,disintegrating 4 mg PO Q8H PRN PRN (Reason: Nausea) Qty: 10 0RF oxycodone-acetaminophen [Percocet] 5-325 mg tablet 1 tab PO Q6H PRN (Reason: pain) 3 Days Qty: 12 0RF No Action chlorthalidone 25 mg tablet 25 mg PO QDAY diphenhydramine HCl [Benadryl] 25 mg capsule 25 mg PO QHS Primary Care Provider: Bret Flores Referrals: Aren Valencia DO [Med Staff - Active Staff] - 3-5 Days Bret Flores MD [Primary Care Provider] - 3-5 Days Activity Restrictions/Additional Instructions: Follow-up with orthopedic physician. Percocet as needed for pain. Percocet does contain Tylenol, make sure you monitor your Tylenol intake. Okay for ibuprofen. Wear walking boot. Print Language: Nauruan Disposition Disposition: Home, Self Care
[2025-02-23 21:23] VITALS: BP 127/62; PULSE 67; RESP 18; TEMP 36.8; O2SAT 99
== END 2025-02-23 21:36 | disposition home or self-care (01) ==
PROVIDERS: Emergency Provider Surgery; PCP Family Medicine; Visit Provider Surgery
DX: S82.831A Other fracture of upper and lower end of right fibula, initial encounter for closed fracture (principal); I10 Essential (primary) hypertension; X58.XXXA Exposure to other specified factors, initial encounter; Z79.899 Other long term (current) drug therapy
CPT/HCPCS: 73610; 99283

== ENCOUNTER → 2025-05-25 | Outpatient (CLI) | payer BC, SELFPAY ==
[2025-05-25 12:39] LABS: AST(SGOT) 19 U/L (<=31); Alanine Aminotransfer ALT/SGPT 14 U/L (<=34); Albumin, Serum 4.2 g/dL (3.4-4.8); Alkaline Phosphatase 70 U/L (35-104); Anion Gap 11 (5-15); BUN 12 mg/dL (4-19); BUN/Creat Ratio 12.9 RATIO (10-20); Calcium,Total 9.4 mg/dL (7.6-11.0); Carbon Dioxide 27.5 mmol/L (21.0-32.0); Chloride 98 mmol/L (98-108); Cholesterol 225 mg/dL (<=200); Globulin 2.8 g/dL (2.2-4.2); Glucose 81 mg/dL (70-99); Low Density Lipoprotein Calc. 131 mg/dL; Potassium 3.5 mmol/L (3.3-5.1); Triglycerides 76 mg/dL; Very Low Density Lipoprotein 15 mg/dL (5-40); cholesterol:hdl ratio screen 2.86
== END | disposition home or self-care (01) ==
LOC: MFPLAB 11:00
PROVIDERS: PCP Family Medicine; Visit Provider Family Medicine
DX: I10 Essential (primary) hypertension (principal)
CPT/HCPCS: 36415; 80053; 80061